=== PATIENT | female | born 1965 | race Caucasian/White ===

== ENCOUNTER 2017-03-02 10:21 | Day surgery (SDC) | payer SELFPAY ==
[2017-03-02] MEDS ORDERED: Lactated Ringer's 500 ML IV ONE (11:22)
[2017-03-02 12:31] VITALS: PULSE 60; TEMP 97.3
[2017-03-02 12:43] VITALS: BP 100/50; RESP 14; O2SAT 100
== END 2017-03-02 12:50 | disposition home or self-care (01) ==
LOC: H.ENDO 10:21
PROVIDERS: ATTEND Internal Medicine Gastroenterology
DX: Z12.11 Encounter for screening for malignant neoplasm of colon (principal); K64.8 Other hemorrhoids

== ENCOUNTER 2017-03-31 11:03 | Day surgery (SDC) | payer SELFPAY ==
[2017-03-30 09:55] VITALS: BMI 24.1
[2017-03-31] MEDS ORDERED: Succinylcholine 200 mg/10 ml Inj IV ONE (11:58)
[2017-03-31] MEDS ORDERED: ePHEDrine 50 mg/ml Inj ONE (11:58)
[2017-03-31] MEDS ORDERED: Midazolam 2 MG/2 ML VIAL ONE (11:58)
[2017-03-31] MEDS ORDERED: Propofol 10 mg/ml Inj (20 ML) ONE (11:58)
[2017-03-31] MEDS ORDERED: Rocuronium 10 mg/ml (5 ml) ONE (11:58)
[2017-03-31] MEDS ORDERED: Lactated Ringer's 1,000 ML IV ONE ×2 (12:04→14:02)
[2017-03-31] MEDS ORDERED: Dexamethasone 4 mg/1 ml ONE (13:15)
[2017-03-31] MEDS ORDERED: Neostigmine Methylsulfate 3mg/3ml Syringe IV ONE (13:29)
[2017-03-31] MEDS ORDERED: Neostigmine Methylsulfate 2 MG/2 ML ML IV ONE (13:29)
[2017-03-31] MEDS ORDERED: Lactated Ringer's 1,000 ML IV SCH (14:07)
[2017-03-31] MEDS ORDERED: HYDROmorphone 0.5 mg/0.5 ml ISec IVP PRN (14:07)
[2017-03-31] MEDS ORDERED: Oxycodone/Acetaminophen 5/325 mg Tab PO PRN (14:10)
--- NOTE | 2017-03-31 14:17 | PCM.SURG1 ---
Surgeon's Initial Post Op Note - Surgeon's Notes Surgeon: Dr. Melgoza [employer] Officer: Jodie Christianson, PGY1 Pre-Operative Diagnosis: cholecystitis, cholelithiasis Operative Findings: same Post-Operative Diagnosis: same Operation Performed: Laparoscopic cholecystectomy Specimen/Specimens Removed: gallbladder Estimated Blood Loss: EBL {In ML}: 10 Date of Surgery/Procedure: 03/31/17 Time of Surgery/Procedure: 13:00
[2017-03-31 16:46] VITALS: RESP 18
[2017-03-31 16:48] VITALS: O2SAT 99
[2017-03-31 17:55] VITALS: BP 116/66; PULSE 75; TEMP 98.7
--- NOTE | 2017-05-05 08:43 | OP ---
PROCEDURE DATE: 03/31/2017 SURGEON: Dr. Melgoza. CONTROL DIRECTOR: Jodie Christianson ANESTHESIA: General, Dr. Nelson. PREOPERATIVE DIAGNOSIS: Cholelithiasis. POSTOPERATIVE DIAGNOSIS: Cholelithiasis. PROCEDURE: Laparoscopic cholecystectomy. DESCRIPTION OF PROCEDURE: With the patient in the supine position, under adequate general anesthesia, the abdomen was prepped and draped in the usual sterile manner. Veress needle puncture was performed at the umbilicus with insufflation to 15 cm water pressure of CO2 and a 10 mm laparoscopic trochar was inserted via an infraumbilical incision. Under direct vision, additional trocars were inserted in the epigastrium and right costal margin. The gallbladder was identified, it was not acutely inflamed. The gallbladder fundus was grasped and elevated. The infundibulum was grasped and retracted laterally. The cystic duct was identified and dissected. It was cleared down towards the common bile duct and viewed anteriorly and posteriorly. The cystic duct was then triply clipped and divided. Cystic artery was then identified and dissected; anterior and posterior branches were triply clipped and divided and the gallbladder was dissected free of the liver bed using electrocautery. The liver bed was inspected for hemostasis and the dissection was completed. The gallbladder was placed in a specimen retrieval bag and removed via the umbilical port site. The right upper quadrant was irrigated and suctioned. The pneumoperitoneum was released and the trocars were removed. The umbilical port site was closed with a figure of eight fascial suture of 0-Vicryl. All incisions were closed with 4-0 Monocryl subcuticular sutures and Steri-Strips. Dry sterile dressings were applied. The patient tolerated the procedure well and transferred to the recovery room in stable condition. Estimated blood loss for the procedure was 10 mL. Maya Melgoza MD
== END 2017-03-31 18:35 | disposition home or self-care (01) ==
LOC: EDBD → H.OPSURG 11:03
PROVIDERS: ATTEND Specialist
DX: K80.00 Calculus of gallbladder with acute cholecystitis without obstruction (principal)

== ENCOUNTER 2018-01-16 01:54 | Emergency (ER) | payer SELFPAY ==
[2018-01-16 01:54] VITALS: BMI 24.1
[2018-01-16 02:17] VITALS: RESP 16; TEMP 97.8; O2SAT 100
[2018-01-16] MEDS ORDERED: Sodium Chloride 0.9% 1,000 ML IV STA (03:34)
--- NOTE | 2018-01-16 03:57 | ED PDOC ---
HPI: Abdomen Time Seen by Provider: 01/16/18 03:12 Chief Complaint (Nursing): Abdominal Pain Chief Complaint (Provider): Abdominal pain History Per: Patient History/Exam Limitations: no limitations Onset/Duration Of Symptoms: Hrs (24) Outside of [place] travel?: No Current Symptoms Are (Timing): Still Present Location Of Pain/Discomfort: Diffuse Quality Of Discomfort: Cramping Associated Symptoms: Nausea, Diarrhea. denies: Fever, Vomiting Additional Complaint(s): 52yo female with no past medical history, presents to ED with complaints of abdominal pain for the past 24 hours. Patient states the pain is cramping and contraction like, 9/10 intensity and has been present since yesterday morning. She currently reports associated nausea and mild diarrhea and denies any vomiting; does report 2 days ago, she had vomiting after she ate some plantains. She denies any fever, chills, shortness of breath, chest pain. No other complaints. Abnormal Vaginal Bleeding: No Past Medical History Reviewed: Historical Data, Nursing Documentation, Vital Signs Vital Signs: Last Vital Signs Temp 97.8 F 01/16/18 02:13 Pulse 64 01/16/18 02:13 Resp 16 01/16/18 02:13 BP 111/76 01/16/18 02:13 Pulse Ox 100 01/16/18 04:01 - Medical History PMH: Arthritis Denies: Chronic Kidney Disease - Surgical History Surgical History: Cholecystectomy - Family History Family History: States: No Known Family Hx - Home Medications Home Medications: Ambulatory Orders Medication Instructions Recorded oxyCODONE/Acetaminophen [Percocet 5 - 325 mg PO Q4 PRN 03/31/17 5/325 mg Tab] Dicyclomine [Bentyl] 20 mg PO Q12 PRN #20 tab 01/16/18 Ondansetron ODT [Zofran ODT] 4 mg PO Q6 PRN #16 odt 01/16/18 - Allergies Allergies/Adverse Reactions: Allergies Allergy/AdvReac Type Severity Reaction Status Date / Time No Known Allergies Allergy Verified 01/16/18 02:13 Review of Systems ROS Statement: Except As Marked, All Systems Reviewed And Found Negative Constitutional: Negative for: Fever, Chills Cardiovascular: Negative for: Chest Pain Respiratory: Negative for: Shortness of Breath Gastrointestinal: Positive for: Nausea, Abdominal Pain, Diarrhea. Negative for : Vomiting Physical Exam - Reviewed Nursing Documentation Reviewed: Yes Vital Signs Reviewed: Yes - Physical Exam Appears: Positive for: Non-toxic, Uncomfortable Head Exam: Positive for: ATRAUMATIC, NORMAL INSPECTION, NORMOCEPHALIC Skin: Positive for: Normal Color Eye Exam: Positive for: Normal appearance Neck: Positive for: Normal, Supple Cardiovascular/Chest: Positive for: Regular Rate, Rhythm Respiratory: Positive for: Normal Breath Sounds. Negative for: Respiratory Distress Gastrointestinal/Abdominal: Positive for: Soft, Tenderness (right mid abdomen tenderness, no McBurney's point tenderness). Negative for: Guarding, Rebound Back: Positive for: Normal Inspection Extremity: Positive for: Normal ROM. Negative for: Deformity, Swelling Neurologic/Psych: Positive for: Alert, Oriented. Negative for: Motor/Sensory Deficits - Laboratory Results Result Diagrams: 01/16/18 03:49 01/16/18 03:49 - ECG O2 Sat by Pulse Oximetry: 100 (RA) Pulse Ox Interpretation: Normal Medical Decision Making Medical Decision Making: Impression: 52yo female with abdominal pain and diarrhea Plan: -- EKG -- Labs -- IV Fluids -- Zofran 4mg IV -- Bentyl 20 mg PO -- Toradol 15 mg IV Time: 0602 Labs reviewed and indicates mild LFT elevation, patient instructed to follow up at [facility]. Patient reports marked improvement in her pain, stable for discharge home. Diagnosis: Gastroenteritis Scribe Attestation: Documented by Jelly Campos acting as a scribe for Luis Harvey MD. Provider Attestation: All medical record entries made by the Scribe were at my direction and personally dictated by me. I have reviewed the chart and agree that the record accurately reflects my personal performance of the history, physical exam, medical decision making, and the department course for this patient. I have also personally directed, reviewed, and agree with the discharge instructions and disposition. Disposition - Clinical Impression Clinical Impression: Gastroenteritis - Disposition Disposition: Routine/Home Disposition Time: 06:05 Condition: STABLE Prescriptions: Dicyclomine [Bentyl] 20 mg PO Q12 PRN #20 tab PRN Reason: abdominal pain/diarrhea Ondansetron ODT [Zofran ODT] 4 mg PO Q6 PRN #16 odt PRN Reason: Nausea/Vomiting Instructions: Gastroenteritis (ED) Forms: [facility] (Eritrean) Print Language: TURKISH
[2018-01-16 04:27] LABS: BASO % 0.5 % (0.0-2.0); EOS # 0.1 K/uL (0.0-0.7); EOS % 1.1 % (0.0-4.0); HEMOGLOBIN 15.3 g/dL (12.0-16.0); LYMPH # 1.3 K/uL (1.0-4.3); MEAN CELL VOLUME 86.5 fl (81.0-99.0); MEAN CORPUSCULAR HEMOGLOBIN 30.1 pg (27.0-31.0); MEAN CORPUSCULAR HGB CONC 34.8 g/dL (33.0-37.0); MONO # 0.6 K/uL (0.0-0.8); MONO % 8.9 % (0.0-10.0); NEUT # 4.3 K/uL (1.8-7.0); NEUT % 68.5 % (50.0-75.0); NRBC % 0.1 % (0.0-0.0); RBC 5.08 Mil/uL (3.80-5.20); RED CELL DISTRIBUTION WIDTH 13.4 % (11.5-14.5); WHITE BLOOD COUNT 6.3 K/uL (4.8-10.8)
[2018-01-16 05:41] LABS: BLOOD UREA NITROGEN 12 mg/dl (7-17); GFR AFRICAN-AMERICAN > 60; GFR NON-AFRICAN AMERICAN > 60
[2018-01-16 05:42] LABS: ALB/GLOB RATIO 1.1 (1.0-2.1)
[2018-01-16 05:43] LABS: ALT/SGPT 93 U/L (9-52); AST/SGOT 87 U/L (14-36); LIPASE 74 U/L (23-300)
[2018-01-16 06:12] VITALS: BP 100/60; PULSE 72
--- NOTE | 2018-01-16 09:33 | CARD ---
APPROVED REPORT EKG Measurement Heart [id number] <Conclusion> Normal sinus rhythm Low voltage QRS Borderline ECG
== END 2018-01-16 06:18 | disposition home or self-care (01) ==
LOC: H.ER 01:54
DX: K52.9 Noninfective gastroenteritis and colitis, unspecified (principal)
CPT/HCPCS: 80053; 81025; 83690; 85025; 93005; 96361; 96374; 96375; 99284; J1885; J2405; J7040

== ENCOUNTER 2018-05-12 21:50 | Emergency (ER) | payer SELFPAY ==
[2018-05-12 22:01] VITALS: TEMP 97.8
[2018-05-12 22:02] VITALS: BMI 25.2
[2018-05-12] MEDS ORDERED: Sodium Chloride 0.9% 1,000 ML IV STA (22:55)
[2018-05-12 23:23] LABS: BASO % 0.6 % (0.0-2.0); EOS % 0.4 % (0.0-4.0); HEMOGLOBIN 14.2 g/dL (12.0-16.0); LYMPH # 1.6 K/uL (1.0-4.3); LYMPH % 19.3 % (20.0-40.0); MEAN CORPUSCULAR HEMOGLOBIN 29.6 pg (27.0-31.0); MEAN PLATELET VOLUME 6.9 fl (7.2-11.7); MONO # 0.4 K/uL (0.0-0.8); NEUT % 74.7 % (50.0-75.0); RBC 4.82 Mil/uL (3.80-5.20); RED CELL DISTRIBUTION WIDTH 13.7 % (11.5-14.5); WHITE BLOOD COUNT 8.1 K/uL (4.8-10.8)
--- NOTE | 2018-05-12 23:40 | ED PDOC ---
HPI: General Adult Time Seen by Provider: 05/12/18 22:15 Chief Complaint (Nursing): Dizziness/Lightheaded Chief Complaint (Provider): Dizziness History Per: Patient History/Exam Limitations: no limitations Onset/Duration Of Symptoms: Days (x1) Current Symptoms Are (Timing): Still Present Additional Complaint(s): 52 year old female with no significant past medical history presents to the ED for dizziness associated mild headache onset one day. Patient reports room spinning sensation but denies nausea, vomiting, head injury or any other medical complaints. She had a similar episode of dizziness last year that resolved spontaneously. PMD: Dr. Bhandari Past Medical History Reviewed: Historical Data, Nursing Documentation, Vital Signs Vital Signs: Last Vital Signs Temp 97.8 F 05/12/18 22:01 Pulse 61 05/13/18 00:46 Resp 14 05/13/18 00:46 BP 114/72 05/13/18 00:46 Pulse Ox 98 05/13/18 00:46 - Medical History PMH: Arthritis Denies: Chronic Kidney Disease - Surgical History Surgical History: Cholecystectomy - Family History Family History: States: Unknown Family Hx - Social History Current smoker - smoking cessation education provided: No Ex-Smoker (has not smoked in the last 12 months): No Alcohol: None Drugs: Denies - Home Medications Home Medications: Ambulatory Orders Medication Instructions Recorded oxyCODONE/Acetaminophen [Percocet 5 - 325 mg PO Q4 PRN 03/31/17 5/325 mg Tab] Dicyclomine [Bentyl] 20 mg PO Q12 PRN #20 tab 01/16/18 Ondansetron ODT [Zofran ODT] 4 mg PO Q6 PRN #16 odt 01/16/18 Meclizine [Antivert] 25 mg PO Q6 PRN #12 tab 05/13/18 - Allergies Allergies/Adverse Reactions: Allergies Allergy/AdvReac Type Severity Reaction Status Date / Time No Known Allergies Allergy Verified 05/12/18 21:59 Review of Systems ROS Statement: Except As Marked, All Systems Reviewed And Found Negative Neurological: Positive for: Dizziness Physical Exam - Reviewed Nursing Documentation Reviewed: Yes Vital Signs Reviewed: Yes - Physical Exam Appears: Positive for: Non-toxic, No Acute Distress Head Exam: Positive for: ATRAUMATIC, NORMOCEPHALIC Skin: Positive for: Normal Color, Warm, Dry Eye Exam: Positive for: EOMI, Normal appearance, PERRL Neck: Positive for: Normal, Painless ROM Cardiovascular/Chest: Positive for: Regular Rate, Rhythm. Negative for: Murmur Respiratory: Positive for: Normal Breath Sounds. Negative for: Respiratory Distress Gastrointestinal/Abdominal: Positive for: Normal Exam, Soft. Negative for: Tenderness Extremity: Positive for: Normal ROM (upper and lower) Neurologic/Psych: Positive for: Alert, Oriented (x3) - Laboratory Results Result Diagrams: 05/12/18 23:21 05/12/18 23:21 - ECG O2 Sat by Pulse Oximetry: 97 (RA) Pulse Ox Interpretation: Normal Medical Decision Making Medical Decision Making: Time: 22:54 Initial Impression: 52 year old female with vertiginous dizziness Initial Plan: --EKG --CMP --Urine preg --Urine dip --CBC with differentials --Antivert 25 mg PO --NS --Zofran 4 mg IV --Heplock insertion --Accucheck Time: 00:50 --Patient reports symptoms improved. Labs reviewed and show no clinically significant abnormalities. Patient medically cleared for discharged home. Diagnosis vertigo. Scribe Attestation: Documented by Rachelle Cisse, acting as a scribe for Luis Harvey MD Provider Scribe Attestation: All medical record entries made by the Scribe were at my direction and personally dictated by me. I have reviewed the chart and agree that the record accurately reflects my personal performance of the history, physical exam, medical decision making, and the department course for this patient. I have also personally directed, reviewed, and agree with the discharge instructions and disposition. Disposition - Clinical Impression Clinical Impression: Vertigo - Disposition Disposition Time: 00:50 Condition: STABLE Prescriptions: Meclizine [Antivert] 25 mg PO Q6 PRN #12 tab PRN Reason: Dizziness Instructions: Vertigo (a Type of Dizziness) Forms: [facility] (Upper Sorbian) Print Language: AZERI
[2018-05-12 23:42] LABS: ALB/GLOB RATIO 1.3 (1.0-2.1); ALBUMIN 4.3 g/dL (3.5-5.0); ALT/SGPT 42 U/L (9-52); AST/SGOT 44 U/L (14-36); BLOOD UREA NITROGEN 16 mg/dl (7-17); GFR AFRICAN-AMERICAN > 60; GFR NON-AFRICAN AMERICAN > 60
[2018-05-13 00:47] VITALS: BP 114/72; PULSE 61; RESP 14
[2018-05-13 00:58] VITALS: O2SAT 97
--- NOTE | 2018-05-13 06:07 | CARD ---
APPROVED REPORT Date of service: 05/12/2018 <Conclusion> Normal sinus rhythm Normal ECG
== END 2018-05-13 00:53 | disposition home or self-care (01) ==
LOC: H.ER 21:50
DX: R42 Dizziness and giddiness (principal)
CPT/HCPCS: 80053; 82948; 85025; 93005; 96360; 99285; J2405; J7030

== ENCOUNTER 2018-11-12 17:17 | Emergency (ER) | payer SELFPAY ==
[2018-11-12 17:17] VITALS: BMI 25.2
[2018-11-12 17:28] VITALS: O2SAT 98
--- NOTE | 2018-11-12 18:31 | ED PDOC ---
HPI: Abdomen Time Seen by Provider: 11/12/18 17:39 Chief Complaint (Nursing): Abdominal Pain Chief Complaint (Provider): Abdominal Pain History Per: Patient History/Exam Limitations: no limitations Onset/Duration Of Symptoms: Days (x2) Location Of Pain/Discomfort: Diffuse Associated Symptoms: Nausea, Urinary Symptoms Additional Complaint(s): 53 y/o presents to the ED complaining of diffuse abdominal pain specifically lower abdomen for the past x2 days. Patient reports some nausea associated with pain and that it is worse with urination. Additionally reports some burning in pelvic area when urinating. Denies blood urine, back pain, fever, or vomiting. Patient also states that for the past x3 months she has noticed soft tissue protruding from her vaginal area. She has not seen a specialist because she has no insurance and no doctor. Past Medical History Reviewed: Historical Data, Nursing Documentation, Vital Signs Vital Signs: Last Vital Signs Temp 98.3 F 11/12/18 17:25 Pulse 74 11/12/18 17:25 Resp 19 11/12/18 17:25 BP 120/83 11/12/18 17:25 Pulse Ox 98 11/12/18 17:25 - Medical History PMH: Arthritis Denies: Chronic Kidney Disease - Surgical History Surgical History: Cholecystectomy - Family History Family History: States: Unknown Family Hx - Immunization History Hx Tetanus Toxoid Vaccination: No Hx Influenza Vaccination: No Hx Pneumococcal Vaccination: No - Home Medications Home Medications: Ambulatory Orders Medication Instructions Recorded DiphenhydrAMINE [Benadryl] 25 mg PO Q4H #15 cap 05/11/14 Famotidine [Pepcid] 20 mg PO DAILY #10 tab 05/11/14 oxyCODONE/Acetaminophen [Percocet 5 - 325 mg PO Q4 PRN 03/31/17 5/325 mg Tab] Dicyclomine [Bentyl] 20 mg PO Q12 PRN #20 tab 01/16/18 Ondansetron ODT [Zofran ODT] 4 mg PO Q6 PRN #16 odt 01/16/18 Meclizine [Antivert] 25 mg PO Q6 PRN #12 tab 05/13/18 RX: Naproxen 500 mg PO BID #60 tab 11/12/18 - Allergies Allergies/Adverse Reactions: Allergies Allergy/AdvReac Type Severity Reaction Status Date / Time No Known Allergies Allergy Verified 08/24/18 11:40 Review of Systems ROS Statement: Except As Marked, All Systems Reviewed And Found Negative Constitutional: Negative for: Fever Gastrointestinal: Positive for: Nausea, Abdominal Pain. Negative for: Vomiting Genitourinary Female: Positive for: Dysuria, Pelvic Pain. Negative for: Hematuria Physical Exam - Reviewed Nursing Documentation Reviewed: Yes Vital Signs Reviewed: Yes - Physical Exam Appears: Positive for: Well, Non-toxic, No Acute Distress Head Exam: Positive for: ATRAUMATIC, NORMAL INSPECTION, NORMOCEPHALIC Skin: Positive for: Normal Color, Warm, DRY Eye Exam: Positive for: EOMI, Normal appearance, PERRL ENT: Positive for: Normal ENT Inspection Neck: Positive for: Normal, Painless ROM Cardiovascular/Chest: Positive for: Regular Rate, Rhythm. Negative for: Murmur Respiratory: Positive for: Normal Breath Sounds. Negative for: Respiratory Distress Gastrointestinal/Abdominal: Positive for: Tenderness (suprapubic and epigastric) Pelvic Exam: Positive for: External Exam Normal (without speculum; [employer] was ED Nurse Rosalba), Other (soft, pink, warm tissue prolapsing from vaginal wall in orifice) Back: Positive for: Normal Inspection. Negative for: L CVA Tenderness, R CVA Tenderness, Vertebral Tenderness Extremity: Positive for: Normal ROM. Negative for: Pedal Edema, Deformity Neurologic/Psych: Positive for: Alert, Oriented. Negative for: Motor/Sensory Deficits - Laboratory Results Result Diagrams: 11/12/18 18:53 11/12/18 18:53 - ECG O2 Sat by Pulse Oximetry: 98 (RA) Pulse Ox Interpretation: Normal Medical Decision Making Medical Decision Making: Time: 18:20 Initial Impression: Abdominal pain and dysuria Differential includes UTI, gastritis, less likely pancreatitis also pelvic pain associated with uterine prolapse Initial Plan: CMP [facility] ED Urine CBC w/ diff Toradol 30 mg Zofran 4 mg UA US Pelvis Scribe Attestation: Documented by Jordy Flores acting as a scribe for Renu Schofield MD. Provider Scribe Attestation: All medical record entries made by the Scribe were at my direction and personally dictated by me. I have reviewed the chart and agree that the record accurately reflects my personal performance of the history, physical exam, medical decision making, and the department course for this patient. I have also personally directed, reviewed, and agree with the discharge instructions and d isposition. 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 Return to the emergency department if symptoms worsen or if new symptoms develop. Take Naproxen twice per day for pain. Prescriptions: RX: Naproxen 500 mg PO BID #60 tab Instructions: Uterine Fibroids (DC) Forms: [employer] [facility] (Kiswahili), [employer] (Danish) Print Language: HONG KONGER
[2018-11-12 18:49] LABS: SQUAMOUS EPITHIAL 2 /hpf (0-5); URINE BACTERIA RARE (<OCC); URINE BILIRUBIN NEGATIVE (NEGATIVE); URINE BLOOD SMALL (NEGATIVE); URINE CLARITY SLIGHTY-CLOUDY (Clear); URINE COLOR YELLOW (YELLOW); URINE GLUCOSE (UA) NEG (NEGATIVE); URINE PROTEIN NEGATIVE (NEGATIVE)
[2018-11-12 18:50] LABS: URINE LEUKOCYTE ESTERASE NEGATIVE Leu/uL (Negative)
[2018-11-12 18:59] LABS: BASO # 0.1 K/uL (0.0-0.2); BASO % 1.1 % (0.0-2.0); EOS # 0.2 K/uL (0.0-0.7); EOS % 3.7 % (0.0-4.0); LYMPH # 1.9 K/uL (1.0-4.3); LYMPH % 31.9 % (20.0-40.0); MEAN CELL VOLUME 87.5 fl (81.0-99.0); MEAN CORPUSCULAR HEMOGLOBIN 29.5 pg (27.0-31.0); MEAN CORPUSCULAR HGB CONC 33.7 g/dL (33.0-37.0); MONO # 0.5 K/uL (0.0-0.8); MONO % 9.3 % (0.0-10.0); NEUT # 3.1 K/uL (1.8-7.0); RBC 5.09 Mil/uL (3.80-5.20); RED CELL DISTRIBUTION WIDTH 13.6 % (11.5-14.5); WHITE BLOOD COUNT 5.8 K/uL (4.8-10.8)
[2018-11-12 19:11] LABS: ALB/GLOB RATIO 1.2 (1.0-2.1); ALBUMIN 4.3 g/dL (3.5-5.0); ALT/SGPT 61 U/L (9-52); AST/SGOT 67 U/L (14-36); BLOOD UREA NITROGEN 15 mg/dl (7-17); GFR NON-AFRICAN AMERICAN > 60; LIPASE 81 U/L (23-300)
[2018-11-12 20:04] VITALS: RESP 18
[2018-11-12 21:17] VITALS: BP 111/71; PULSE 65; TEMP 97.6
--- NOTE | 2018-11-13 10:05 | US ---
Date of service: 11/12/2018 HISTORY: pelvic pain dysuria vaginal mass? COMPARISON: Pelvic ultrasound dated 03/25/2015. TECHNIQUE: Grayscale, color Doppler and spectral evaluation the pelvis performed transabdominally and transvaginally FINDINGS: UTERUS: Measures 4.9 x 3.8 x 2.6 cm. Normal in size and appearance. Small posterior fundal fibroid measuring 8 x 6 x 9 mm. ENDOMETRIUM: Measures 3 mm in diameter. Unremarkable. CERVIX: No cervical abnormality identified. RIGHT OVARY: Not visualized LEFT OVARY: Measures 2.5 x 1.7 x 1.4 cm. Exophytic cyst measuring 1.1 x 1.0 x 1.1 cm. Normal flow. FREE FLUID: No significant free fluid noted. OTHER FINDINGS: None. IMPRESSION: Sub centimeter fundal fibroid. Nonvisualization of the right ovary. Otherwise, unremarkable pelvic ultrasound.
== END 2018-11-12 21:24 | disposition home or self-care (01) ==
LOC: H.ER 17:17 → SUPCPDRO 17:17 → H.ER 21:24
DX: D25.9 Leiomyoma of uterus, unspecified (principal); R10.9 Unspecified abdominal pain
CPT/HCPCS: 76830; 76856; 80053; 81003; 81025; 83690; 85025; 96374; 99284; J1885; J2405